=== PATIENT | female | born 1955 | race Caucasian/White ===

== ENCOUNTER 2024-04-16 23:28 | Emergency (ER) | payer BC, MEDICARE, OTHER ==
[~2024-04-16] VITALS: Ht 157.5 cm; Wt 66.0 kg
[2024-04-16 23:31] VITALS: TEMP 98.4; O2SAT 97
[2024-04-17] MEDS: MORPHINE SULFATE 2 MG/ML INJ (NOT FOR IM USE) IV ONE (00:16)
[2024-04-17 04:15] VITALS: BP 116/78; PULSE 66; RESP 18; O2SAT 100
== END 2024-04-17 04:16 | disposition home or self-care (01) ==
LOC: ER 23:28
DX: S09.90XA Unspecified injury of head, initial encounter (principal); M79.605 Pain in left leg; E78.00 Pure hypercholesterolemia, unspecified; Z88.0 Allergy status to penicillin; W18.39XA Other fall on same level, initial encounter; Y93.89 Activity, other specified; Y92.89 Other specified places as the place of occurrence of the external cause; Y99.8 Other external cause status
CPT/HCPCS: 99285; 73552; 72170; 96374; 70450; J2270